=== PATIENT | male | born 1960 | race Caucasian/White ===

== ENCOUNTER 2024-11-07 07:54 | Outpatient (CLI) | payer OTHER | END 2024-11-07 07:55 | disposition home or self-care (01) | LOC: BICCT 07:54 | PROVIDERS: ATTEND Family Medicine | DX: Z12.2 Encounter for screening for malignant neoplasm of respiratory organs (principal); F17.210 Nicotine dependence, cigarettes, uncomplicated | CPT/HCPCS: 71271 ==